=== PATIENT | female | born 1960 | race Caucasian/White ===

== ENCOUNTER 2017-03-25 13:05 | Inpatient (IN) | payer BC ==
[~2017-03-25] VITALS: Ht 170.2 cm; Wt 73.9 kg
[2017-03-25 13:05] VITALS: BP_SYST 133
[2017-03-25 13:55] LABS: BASOPHILS % (AUTO) 1.1 % (0.0-2.0); EOSINOPHILS # (AUTO) 0.1 K/uL (0.0-0.4); EOSINOPHILS % (AUTO) 1.4 % (0.0-4.0); HEMATOCRIT 42.2 % (36-48); HEMOGLOBIN 14.4 g/dL (12.0-16.0); LYMPHOCYTES # (AUTO) 1.3 K/uL (1.0-5.5); LYMPHOCYTES % (AUTO) 35.6 % (20.5-51.5); MEAN CORPUSCULAR HEMOGLOBIN 31 pg (27-31); MEAN CORPUSCULAR HGB CONC 34 % (32-36); MEAN CORPUSCULAR VOLUME 91 fL (79.0-98.0); MONOCYTES # (AUTO) 0.2 K/uL (0.0-1.0); MONOCYTES % (AUTO) 4.5 % (1.7-9.3); NEUTROPHILS # (AUTO) 2.2 K/uL (1.8-7.7); NEUTROPHILS % (AUTO) 57.4 % (40.0-70.0); PLATELET COUNT (AUTO) 276 K/uL (130-430); RED BLOOD CELL COUNT(AUTO) 4.63 MIL/uL (4.2-6.2); RED CELL DISTRIBUTION WIDTH 12.6 % (9.0-15.0)
[2017-03-25 13:57] LABS: WHITE BLOOD COUNT (AUTO) 3.8 K/uL (4.8-10.8)
[2017-03-25] MEDS ORDERED: LORazepam 2 MG/ML VIAL (FOR ER USE) IVP ONE ×2 (14:00→14:45)
[2017-03-25] MEDS ORDERED: DIPHENHYDRAMINE INJ 50 MG/ML VIAL IVP ONE (14:00)
[2017-03-25] MEDS ORDERED: LORazepam 2 MG/ML VIAL (FOR ER USE) ONE (14:03)
[2017-03-25 14:04] LABS: ALBUMIN 3.8 g/dL (3.4-4.8); CALCIUM 8.1 mg/dL (8.4-11.0); CREATININE 0.72 mg/dL (0.55-1.30); POTASSIUM 3.8 mmol/L (3.5-5.1); TOTAL BILIRUBIN 0.5 mg/dL (0.0-1.0)
[2017-03-25] MEDS ORDERED: VENL75CA PO (19:09)
[2017-03-25 20:04] VITALS: BP_SYST 163
[2017-03-25] MEDS: chlordiazePOXIDE HCL 25 MG CAPSULE PO SCH (22:00)
[2017-03-25] MEDS ORDERED: FOLIC ACID 1 MG TABLET PO SCH (22:00)
[2017-03-25] MEDS ORDERED: THIAMINE HCL 100 MG TABLET PO SCH (22:00)
[2017-03-25] MEDS: FOLIC ACID 1 MG TABLET PO SCH (22:04)
[2017-03-25] MEDS: THIAMINE HCL 100 MG TABLET PO SCH (22:05)
[2017-03-26 00:54] VITALS: BP_SYST 140
[2017-03-26 04:01] VITALS: BP_SYST 146
[2017-03-26 07:56] VITALS: BP_SYST 146
[2017-03-26] MEDS: chlordiazePOXIDE HCL 25 MG CAPSULE PO SCH (09:53)
[2017-03-26] MEDS: FOLIC ACID 1 MG TABLET PO SCH (09:53)
[2017-03-26] MEDS: THIAMINE HCL 100 MG TABLET PO SCH (09:54)
[2017-03-26] MEDS ORDERED: LIB25 PO (09:57)
[2017-03-26 11:32] VITALS: BP_SYST 149
[2017-03-26 11:44] VITALS: BP_SYST 149
[2017-03-26 11:56] LABS: BLOOD, URINE NEGATIVE (NEGATIVE); CLARITY/URINE CLEAR (CLEAR); COLOR,URINE YELLOW (YELLOW); GLUCOSE,URINE NEGATIVE (NEGATIVE); KETONES,URINE 2+ (NEGATIVE); LEUKOCYTE ESTERASE ,URINE NEGATIVE (NEGATIVE); NITRITE, URINE NEGATIVE (NEGATIVE); PH,URINE 5.5 (5.0-8.0); PROTEIN URINE NEGATIVE (NEGATIVE); UROBILINOGEN,URINE 0.2 (0.2-1.0)
[2017-03-26 12:04] LABS: BILIRUBIN,URINE 1+ (NEGATIVE)
[2017-03-26 12:26] LABS: BARBITURATE, URINE NEGATIVE (NEG <=200); BENZODIAZEPINE, URINE POSITIVE (NEG <=150); METHAMPHETAMINES SCREEN,URINE NEGATIVE (NEG <=500); URINE AMPHETAMINE NEGATIVE (NEG <=500); URINE METHADONE NEGATIVE (NEG <=200)
[2017-03-26 12:27] LABS: CANNABINOID, URINE NEGATIVE (NEG <=50); COCAINE, URINE NEGATIVE (NEG <=150); OPIATE, URINE NEGATIVE (NEG <=100); PHENCYCLIDINE SCREEN,URINE NEGATIVE (NEG <=25); UR TRICYCLIC ANTIDEPRESSANTS NEGATIVE (NEG <=300); URINE OXYCODONE SCREEN NEGATIVE (NEG <=100); URINE PROPOXYPHENE SCREEN NEGATIVE (NEG <=300)
[2017-03-26] MEDS ORDERED: ESCITALOPRAM OXALATE 10 MG TABLET PO SCH (21:00)
[2017-03-26] MEDS ORDERED: CITALOPRAM HYDROBROMIDE 20 MG TABLET PO SCH (21:00)
== END 2017-03-26 12:25 | DRG 897 ==
LOC: SED 13:05 → SMU 17:01
DX: F10.229 Alcohol dependence with intoxication, unspecified (principal); R45.851 Suicidal ideations; F33.2 Major depressive disorder, recurrent severe without psychotic features; Y90.1 Blood alcohol level of 20-39 mg/100 ml; Z90.710 Acquired absence of both cervix and uterus; Z81.8 Family history of other mental and behavioral disorders; Z81.1 Family history of alcohol abuse and dependence; Z78.1 Physical restraint status
CPT/HCPCS: 36415; 71010; 80053; 80307; 81003; 85025; 93005; 96374; 96375; 96376; 99285; G0480; G0481; G0482; J1200; J2060

== ENCOUNTER 2024-01-17 11:05 | Inpatient (IN) | payer BC, OTHER ==
[~2024-01-17] VITALS: Ht 170.2 cm; Wt 77.1 kg
[2024-01-17 11:05] VITALS: BP_SYST 184; PULSE 77; RESP 22; TEMP 99.6; O2SAT 97
[~2024-01-17 11:05] MED LIST: LIB25 PO
[2024-01-17] MEDS: ONDANSETRON HCL 4 MG/2 ML VIAL IVP ONE (11:57)
[2024-01-17] MEDS: MORPHINE 4 MG INJ. 4 MG/ML VIAL IVP ONE (11:59)
[2024-01-17 12:12] LABS: BASOPHILS % (AUTO) 0.3 % (0.0-2.0); EOSINOPHILS % (AUTO) 0.3 % (0.0-4.0); HEMATOCRIT 36.5 % (36-48); HEMOGLOBIN 12.6 g/dL (12.0-16.0); LYMPHOCYTES # (AUTO) 1.2 K/uL (1.0-5.5); LYMPHOCYTES % (AUTO) 13.6 % (20.5-51.5); MEAN CORPUSCULAR HEMOGLOBIN 32 pg (27-31); MEAN CORPUSCULAR HGB CONC 35 % (32-36); MEAN CORPUSCULAR VOLUME 91 fL (79.0-98.0); MONOCYTES # (AUTO) 0.5 K/uL (0.0-1.0); MONOCYTES % (AUTO) 6.3 % (1.7-9.3); NEUTROPHILS # (AUTO) 6.9 K/uL (1.8-7.7); NEUTROPHILS % (AUTO) 79.5 % (40.0-70.0); PLATELET COUNT (AUTO) 248 K/uL (130-430); RED CELL DISTRIBUTION WIDTH 13.3 % (9.0-15.0); WHITE BLOOD COUNT (AUTO) 8.6 K/uL (4.8-10.8)
[2024-01-17 12:23] LABS: ANION GAP 11 (5-15); CALCIUM 9.2 mg/dL (8.4-11.0); CARBON DIOXIDE 24 mmol/L (23-29); CHLORIDE 102 mmol/L (98-107); CREATININE 0.68 mg/dL (0.55-1.30); GFR AFRICAN AMERICAN 112 mL/min (>90); GLUCOSE 96 mg/dL (74-106); POTASSIUM 3.9 mmol/L (3.5-5.1); SODIUM SERUM 137 mmol/L (136-145); UREA NITROGEN, BLOOD 14 mg/dL (8-21)
[2024-01-17 12:27] LABS: INR 1.1 (0.8-1.2); PROTHROMBIN TIME 11.6 SECS (9.5-12.5)
[2024-01-17 12:28] LABS: GFR NON AFRICAN-AMERICAN 93 mL/min (>90)
[2024-01-17 12:32] LABS: ALANINE AMINOTRANSFERASE 22 U/L (12-78); ALBUMIN 3.7 g/dL (3.4-4.8); ASPARTATE AMINOTRANSFERASE 15 U/L (10-37); TOTAL BILIRUBIN 1.2 mg/dL (0.0-1.0); TOTAL PROTEIN, SERUM 6.8 g/dL (6.4-8.3)
[2024-01-17 12:35] LABS: ALCOHOL, BLOOD < 3 mg/dL (<10)
[2024-01-17] MEDS ORDERED: LOSA-413 PO (13:17)
[2024-01-17] MEDS ORDERED: RIVA20TA PO (13:21)
[2024-01-17] MEDS ORDERED: ACETAMINOPHEN 325 MG TABLET PO PRN (14:00)
[2024-01-17] MEDS: LOSARTAN POTASSIUM 50 MG TABLET (COZAAR) PO SCH ×2 (14:00→20:22)
[2024-01-17] MEDS: LOSARTAN POTASSIUM 50 MG TABLET (COZAAR) PO ONE (14:15)
[2024-01-17] MEDS: MORPHINE 2 MG/ML INJ. SYRINGE IVP PRN (15:32)
[2024-01-17 15:50] VITALS: O2SAT 96
[2024-01-17 15:57] VITALS: BP_SYST 156; PULSE 68; RESP 17; TEMP 97.2; O2SAT 96
[2024-01-17 16:26] VITALS: BP_SYST 156; PULSE 68; RESP 16
[2024-01-17] MEDS: HYDROcodone/ACETAMIN 5-325 MG TAB (NORCO/ VICODIN) PO PRN (17:08)
[2024-01-17] MEDS ORDERED: hydrALAZINE HCL 20 MG/ML VIAL IVP PRN (17:15)
[2024-01-17 19:00] VITALS: BP_SYST 126; PULSE 79; RESP 18; TEMP 97.5; O2SAT 99
[2024-01-17 20:00] VITALS: BP_SYST 128; PULSE 79; RESP 18; TEMP 97.5
[2024-01-17] MEDS: HYDROcodone/ACETAMIN 10-325 MG TAB PO PRN (21:22)
[2024-01-18] VITALS (7 sets, daily range): BP systolic 110–134; PULSE 59–86; RESP 16–18; TEMP 96.4–98.1; O2SAT 94–99
[2024-01-18 05:57] LABS: BASOPHILS % (AUTO) 0.5 % (0.0-2.0); EOSINOPHILS # (AUTO) 0.1 K/uL (0.0-0.4); EOSINOPHILS % (AUTO) 1.2 % (0.0-4.0); HEMATOCRIT 34.8 % (36-48); HEMOGLOBIN 11.8 g/dL (12.0-16.0); LYMPHOCYTES # (AUTO) 1.6 K/uL (1.0-5.5); LYMPHOCYTES % (AUTO) 28.7 % (20.5-51.5); MEAN CORPUSCULAR HEMOGLOBIN 32 pg (27-31); MEAN CORPUSCULAR HGB CONC 34 % (32-36); MEAN CORPUSCULAR VOLUME 93 fL (79.0-98.0); MONOCYTES # (AUTO) 0.4 K/uL (0.0-1.0); MONOCYTES % (AUTO) 6.9 % (1.7-9.3); NEUTROPHILS # (AUTO) 3.5 K/uL (1.8-7.7); NEUTROPHILS % (AUTO) 62.7 % (40.0-70.0); PLATELET COUNT (AUTO) 189 K/uL (130-430); RED BLOOD CELL COUNT(AUTO) 3.73 MIL/uL (4.2-6.2); RED CELL DISTRIBUTION WIDTH 13.5 % (9.0-15.0); WHITE BLOOD COUNT (AUTO) 5.5 K/uL (4.8-10.8)
[2024-01-18 06:21] LABS: ALBUMIN 3.3 g/dL (3.4-4.8); CALCIUM 9.1 mg/dL (8.4-11.0); CREATININE 0.74 mg/dL (0.55-1.30); TOTAL BILIRUBIN 1.1 mg/dL (0.0-1.0); TOTAL PROTEIN, SERUM 6.4 g/dL (6.4-8.3)
[2024-01-18] MEDS ORDERED: RIVAROXABAN 10 MG TABLET PO SCH (09:00)
[2024-01-18] MEDS: ONDANSETRON HCL 4 MG/2 ML VIAL IVP PRN (23:05)
[2024-01-19 00:34] VITALS: BP_SYST 139; PULSE 66; RESP 16; TEMP 97; O2SAT 97
[2024-01-19] MEDS ORDERED: WATER FOR INJECTION,STERILE 20 ML VIAL IV ONE ×2 (07:38→10:42)
[2024-01-19] MEDS ORDERED: PROPOFOL 200MG/ 20ML VIAL (DIPRIVAN) IV ONE ×2 (07:38→10:42)
[2024-01-19] MEDS ORDERED: TRANEXAMIC ACID 1,000 MG/10 ML VIAL ONE ×2 (07:38→10:42)
[2024-01-19] MEDS ORDERED: ROPIVACAINE HCL/PF 5 MG/ML 0.5% 30 ML VIAL ONE (07:38)
[2024-01-19] MEDS ORDERED: BUPIVACAINE /PF 0.25% 30 ML VIAL INJ ONE ×2 (07:38→10:42)
[2024-01-19] MEDS ORDERED: PHENYLEPHRINE HCL 10 MG/ML VIAL (NEOSYNEPHRINE) ONE (07:38)
[2024-01-19] MEDS ORDERED: NS IRRIG SOLN 1000 ML IR ONE ×2 (07:38→10:42)
[2024-01-19] MEDS ORDERED: LR 1,000 ML IV.SOLN IV ONE ×2 (07:38→10:42)
[2024-01-19] MEDS ORDERED: VANCOMYCIN HCL 1000 MG/VIAL IV ONE (07:38)
[2024-01-19] MEDS ORDERED: ePHEDrine sulfate 50 MG/ML VIAL ONE ×2 (07:38→10:42)
[2024-01-19] MEDS ORDERED: ONDANSETRON HCL 4 MG/2 ML VIAL ONE ×2 (07:38→10:42)
[2024-01-19 08:25] VITALS: O2SAT 96
[2024-01-19 08:26] VITALS: O2SAT 98
[2024-01-19 08:30] VITALS: BP_SYST 125; PULSE 18; RESP 18; TEMP 98.2; O2SAT 96
[2024-01-19] MEDS ORDERED: fentaNYL CITRATE/PF 100 MCG/2 ML AMP ONE ×2 (10:38→10:42)
[2024-01-19] MEDS ORDERED: MIDAZOLAM HCL 2 MG/2 ML VIAL (VERSED) ONE (10:38)
[2024-01-19] MEDS ORDERED: ACETAMINOPHEN I.V. 1000 MG 100 ML IV ONE (10:39)
[2024-01-19] MEDS ORDERED: DEXAMETHASONE SOD PHOSPHATE 4 MG/ML VIAL ONE (10:42)
[2024-01-19] MEDS ORDERED: SEVOFLURANE 15 MIN GAS INH ONE (10:42)
[2024-01-19] MEDS ORDERED: MIDAZOLAM HCL/PF 2 MG/2 ML SYRINGE ONE (10:42)
[2024-01-19] MEDS ORDERED: ONDANSETRON HCL 4 MG/2 ML VIAL IVP PRN (11:30)
[2024-01-19] MEDS ORDERED: fentaNYL CITRATE/PF 100 MCG/2 ML AMP IVP PRN (11:30)
[2024-01-19] MEDS ORDERED: NALOXONE HCL 0.4 MG/ML AMP (NARCAN) IVP PRN ×2 (11:30)
[2024-01-19] MEDS ORDERED: LR 1,000 ML IV ONE (11:30)
[2024-01-19] MEDS ORDERED: hydrALAZINE HCL 20 MG/ML VIAL IV PRN (11:30)
[2024-01-19] MEDS ORDERED: HYDROmorphone 1 MG/ML INJ. CARTRIDGE IVP PRN (11:30)
[2024-01-19] MEDS: HYDROmorphone 1 MG/ML INJ. CARTRIDGE IVP PRN (13:05)
[2024-01-19] MEDS ORDERED: HYDROmorphone 1 MG/ML INJ. CARTRIDGE ONE (13:06)
[2024-01-19 14:10] VITALS: BP_SYST 151; PULSE 69; RESP 15; TEMP 98.3; O2SAT 92
[2024-01-19] MEDS: NACL 0.9% 1,000 ML IV SCH (15:15)
[2024-01-19 16:18] LABS: BASOPHILS % (AUTO) 0.1 % (0.0-2.0); HEMATOCRIT 32.8 % (36-48); HEMOGLOBIN 11.2 g/dL (12.0-16.0); LYMPHOCYTES # (AUTO) 0.3 K/uL (1.0-5.5); LYMPHOCYTES % (AUTO) 4.9 % (20.5-51.5); MEAN CORPUSCULAR HEMOGLOBIN 32 pg (27-31); MEAN CORPUSCULAR HGB CONC 34 % (32-36); MEAN CORPUSCULAR VOLUME 92 fL (79.0-98.0); MONOCYTES # (AUTO) 0.1 K/uL (0.0-1.0); MONOCYTES % (AUTO) 1.2 % (1.7-9.3); NEUTROPHILS # (AUTO) 5.6 K/uL (1.8-7.7); NEUTROPHILS % (AUTO) 93.8 % (40.0-70.0); PLATELET COUNT (AUTO) 177 K/uL (130-430); RED BLOOD CELL COUNT(AUTO) 3.56 MIL/uL (4.2-6.2); RED CELL DISTRIBUTION WIDTH 13.3 % (9.0-15.0)
[2024-01-19 16:27] LABS: ALBUMIN 3.1 g/dL (3.4-4.8); CALCIUM 8.4 mg/dL (8.4-11.0); CREATININE 0.72 mg/dL (0.55-1.30); POTASSIUM 3.8 mmol/L (3.5-5.1); TOTAL BILIRUBIN 0.6 mg/dL (0.0-1.0); TOTAL PROTEIN, SERUM 6.4 g/dL (6.4-8.3)
[2024-01-19 19:00] VITALS: BP_SYST 130; PULSE 71; RESP 20; TEMP 98.8; O2SAT 95; O2SAT 98
[2024-01-19] MEDS: ACETAMINOPHEN 325 MG TABLET PO PRN (23:40)
[2024-01-19] MEDS: DOCUSATE SODIUM 100 MG/10 ML UDC PO SCH (23:41)
[2024-01-20 05:26] LABS: BASOPHILS % (AUTO) 0.2 % (0.0-2.0); HEMATOCRIT 32.3 % (36-48); HEMOGLOBIN 11.2 g/dL (12.0-16.0); LYMPHOCYTES # (AUTO) 0.6 K/uL (1.0-5.5); MEAN CORPUSCULAR HEMOGLOBIN 32 pg (27-31); MEAN CORPUSCULAR HGB CONC 35 % (32-36); MEAN CORPUSCULAR VOLUME 91 fL (79.0-98.0); MONOCYTES # (AUTO) 0.4 K/uL (0.0-1.0); NEUTROPHILS % (AUTO) 84.8 % (40.0-70.0); PLATELET COUNT (AUTO) 218 K/uL (130-430); RED BLOOD CELL COUNT(AUTO) 3.53 MIL/uL (4.2-6.2); RED CELL DISTRIBUTION WIDTH 12.8 % (9.0-15.0); WHITE BLOOD COUNT (AUTO) 7.1 K/uL (4.8-10.8)
[2024-01-20 05:49] LABS: CALCIUM 9.3 mg/dL (8.4-11.0); CREATININE 0.62 mg/dL (0.55-1.30); POTASSIUM 4.1 mmol/L (3.5-5.1); TOTAL BILIRUBIN 0.6 mg/dL (0.0-1.0); TOTAL PROTEIN, SERUM 6.3 g/dL (6.4-8.3)
[2024-01-20 08:23] VITALS: O2SAT 97
[2024-01-20 08:32] VITALS: BP_SYST 126; PULSE 64; RESP 18; TEMP 97.6
[2024-01-20 11:23] VITALS: BP_SYST 118; PULSE 67; RESP 16; TEMP 96.4; O2SAT 97
[2024-01-20 15:09] VITALS: BP_SYST 124; PULSE 74; RESP 16; TEMP 97.5; O2SAT 98
[2024-01-20 20:00] VITALS: BP_SYST 119; PULSE 72; RESP 16; TEMP 96.7; O2SAT 97
[2024-01-20 23:16] VITALS: O2SAT 97
[2024-01-21] VITALS: BP_SYST 122; PULSE 71; RESP 16; TEMP 96.6; O2SAT 97
[2024-01-21 06:20] LABS: BASOPHILS % (AUTO) 0.4 % (0.0-2.0); EOSINOPHILS # (AUTO) 0.1 K/uL (0.0-0.4); EOSINOPHILS % (AUTO) 1.1 % (0.0-4.0); HEMATOCRIT 31.3 % (36-48); HEMOGLOBIN 10.8 g/dL (12.0-16.0); LYMPHOCYTES # (AUTO) 1.3 K/uL (1.0-5.5); LYMPHOCYTES % (AUTO) 27.2 % (20.5-51.5); MEAN CORPUSCULAR HEMOGLOBIN 32 pg (27-31); MEAN CORPUSCULAR HGB CONC 34 % (32-36); MEAN CORPUSCULAR VOLUME 94 fL (79.0-98.0); MONOCYTES # (AUTO) 0.3 K/uL (0.0-1.0); MONOCYTES % (AUTO) 5.9 % (1.7-9.3); NEUTROPHILS % (AUTO) 65.4 % (40.0-70.0); PLATELET COUNT (AUTO) 184 K/uL (130-430); RED BLOOD CELL COUNT(AUTO) 3.35 MIL/uL (4.2-6.2); WHITE BLOOD COUNT (AUTO) 4.6 K/uL (4.8-10.8)
[2024-01-21 06:59] LABS: CALCIUM 9.1 mg/dL (8.4-11.0); CREATININE 0.69 mg/dL (0.55-1.30); TOTAL BILIRUBIN 0.7 mg/dL (0.0-1.0)
[2024-01-21 08:00] VITALS: O2SAT 97
[2024-01-21 08:23] VITALS: BP_SYST 127; PULSE 69; RESP 17; TEMP 98; O2SAT 97
[2024-01-21] MEDS: BISACODYL 10 MG/SUPPOSITORY RC ONE (08:30)
[2024-01-21 11:40] VITALS: BP_SYST 131; PULSE 71; RESP 18; TEMP 97; O2SAT 97
[2024-01-21] MEDS ORDERED: HYDR-3919 PO (12:07)
[2024-01-21] MEDS ORDERED: COLL100 PO (12:07)
[2024-01-21] MEDS ORDERED: RIVAROXABAN 10 MG TABLET PO SCH (18:00)
== END 2024-01-21 15:41 | DRG 493 ==
LOC: SED 11:05 → SMU 13:50
PROVIDERS: ADMIT Family Medicine; ATTEND Family Medicine
PROC: 2W3MX1Z Immobilization of Left Lower Extremity using Splint (ICD-10-PCS; 2024-01-17)
PROC: 0QSK04Z Reposition Left Fibula with Internal Fixation Device, Open Approach (ICD-10-PCS; principal; 2024-01-19 10:42)
DX: S82.62XA Displaced fracture of lateral malleolus of left fibula, initial encounter for closed fracture (principal); S42.201A Unspecified fracture of upper end of right humerus, initial encounter for closed fracture; I10 Essential (primary) hypertension; E78.5 Hyperlipidemia, unspecified; I16.0 Hypertensive urgency; I48.0 Paroxysmal atrial fibrillation; W10.8XXA Fall (on) (from) other stairs and steps, initial encounter; Y93.89 Activity, other specified; Y92.89 Other specified places as the place of occurrence of the external cause; Y99.8 Other external cause status; Z90.710 Acquired absence of both cervix and uterus; Z87.891 Personal history of nicotine dependence; Z79.01 Long term (current) use of anticoagulants; Z79.899 Other long term (current) drug therapy; Z91.041 Radiographic dye allergy status
CPT/HCPCS: 36415; 71045; 73030; 76001; 80053; 85025; 85610; 85730; 86886; 86900; 86901; 87081; 93005; 96374; 96375; 97110-GP; 97116-GP; 97530-GP; 99285; C1713; G0482; J0131; J1100; J1170; J2270; J2370; J2405; J2704; J3010; J3370; J3465; J3490; J7120